=== PATIENT | female | born 1980 | race African-American/Black ===

== ENCOUNTER 2016-06-16 15:33 | Emergency (ER) | payer BC ==
[~2016-06-16] VITALS: Ht 160 cm; Wt 85.3 kg
[~2016-06-16 15:33] MED LIST: ODOR FREE GARL1 EAC1 PO
[2016-06-16] MEDS ORDERED: MOTRIN800 MG PO (16:59)
[2016-06-16] MEDS ORDERED: ULTRACET1 TABLET PO (16:59)
[2016-06-16 17:14] VITALS: BP 131/86
== END 2016-06-16 17:15 | disposition home or self-care (01) ==
LOC: EME 15:33
DX: S46.811A Strain of other muscles, fascia and tendons at shoulder and upper arm level, right arm, initial encounter (principal); S66.911A Strain of unspecified muscle, fascia and tendon at wrist and hand level, right hand, initial encounter; W01.0XXA Fall on same level from slipping, tripping and stumbling without subsequent striking against object, initial encounter; Y92.009 Unspecified place in unspecified non-institutional (private) residence as the place of occurrence of the external cause
CPT/HCPCS: 73030; 73130